=== PATIENT | male | born 2005 | race American Indian/Alaskan Native ===

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

== ENCOUNTER 2023-09-14 20:12 | Emergency (ER) | payer MEDICAID | END 2023-09-14 20:38 | LOC: DL.ED 20:12 | DX: Z53.21 Procedure and treatment not carried out due to patient leaving prior to being seen by health care provider (principal) ==

== ENCOUNTER 2023-09-15 04:38 | Emergency (ER) | payer MEDICAID ==
[2023-09-15 05:45] LABS: CORONAVIRUS COVID-19 NAA NEGATIVE (NEGATIVE); INFLUENZA A NAA NEGATIVE (NEGATIVE); INFLUENZA B NAA NEGATIVE (NEGATIVE); RESPIRATORY SYNCYTIAL VIR NAA NEGATIVE (NEGATIVE)
== END 2023-09-15 05:50 | disposition home or self-care (01) ==
LOC: DL.ED 04:38
DX: K52.9 Noninfective gastroenteritis and colitis, unspecified (principal); Z20.822 Contact with and (suspected) exposure to COVID-19; Z86.16 Personal history of COVID-19
CPT/HCPCS: 0241U; 99283; 99284

== ENCOUNTER 2023-10-06 10:06 | Emergency (ER) | payer MEDICAID, OTHER ==
[2023-10-06] MEDS: Acetaminophen 500 MG Tab PO ONE (10:19)
== END 2023-10-06 10:53 | disposition home or self-care (01) ==
LOC: DL.ED 10:06
DX: S69.92XA Unspecified injury of left wrist, hand and finger(s), initial encounter (principal); Z86.16 Personal history of COVID-19; W22.8XXA Striking against or struck by other objects, initial encounter; Y99.0 Civilian activity done for income or pay
CPT/HCPCS: 73120-LT; 99282; 99283; A9270-GY